=== PATIENT | male | born 1955 | race Caucasian/White ===

== ENCOUNTER 2018-09-01 06:10 | Day surgery (SDC) | payer BC ==
[2018-09-01] MEDS ORDERED: SOD CHLORIDE 0.9% 1,000 ML IV ×2 (06:30→08:50)
[2018-09-01 07:01] LABS: ADD MAN DIFF? NO
[2018-09-01 07:03] LABS: BASOPHIL # 0.1 10^3/ul (0.0-0.1); BASOPHILS % 0.9 % (0.0-2.0); EOSINOPHILS # 0.1 10^3/ul (0.0-0.5); EOSINOPHILS % 1.9 % (0.0-7.0); HEMOGLOBIN 15.1 g/dl (14.0-18.0); LYMPHOCYTES # 1.8 10^3/ul (0.8-2.9); LYMPHOCYTES % 32.7 % (15.0-51.0); MEAN CORPUSCULAR HEMOGLOBIN 30.3 pg (29.0-33.0); MEAN CORPUSCULAR HGB CONC 34.3 g/dl (32.0-37.0); MEAN CORPUSCULAR VOLUME 88.4 fl (82.0-101.0); MEAN PLATELET VOLUME 9.9 fl (7.4-10.4); MONOCYTE # 0.5 10^3/ul (0.3-0.9); MONOCYTES % 9.5 % (0.0-11.0); NEUTROPHILS % 54.6 % (39.0-77.0); PLATELET COUNT 146 10^3/UL (140-415); RED BLOOD COUNT 4.98 10^6/ul (4.70-6.10); RED CELL DISTRIBUTION WIDTH 12.6 % (11.5-14.5)
[2018-09-01 07:03] LABS: WHITE BLOOD COUNT 5.4 10^3/ul (4.8-10.8)
[2018-09-01 07:25] LABS: INR 0.92; PROTIME 12.5 Sec (11.9-14.9)
[2018-09-01 07:26] LABS: PARTIAL THROMBOPLASTIN TIME 25.2 Sec (23.0-35.0)
[2018-09-01 07:27] LABS: ALANINE AMINOTRANSFERASE 28 IU/L (13-69); ALBUMIN 4.4 g/dl (3.3-4.9); ALBUMIN/GLOBULIN RATIO 1.33; ALKALINE PHOSPHATASE 79 IU/L (42-121); ANION GAP 11 (5-13); ASPARTATE AMINO TRANSFERASE 28 IU/L (15-46); BILIRUBIN,INDIRECT 1.2 mg/dl (0-1.1); BILIRUBIN,TOTAL 1.2 mg/dl (0.2-1.3); CALCIUM 10.2 mg/dl (8.4-10.2); CARBON DIOXIDE 25 mmol/L (21-31); CHLORIDE 106 mmol/L (97-110); CHOL/HDL RATIO 2.9 RATIO; CHOLESTEROL 125 mg/dl (100-200); CREATININE 0.88 mg/dl (0.61-1.24); Estimated GFR > 60 mL/min (>60); GLUCOSE 141 mg/dl (70-220); HDL CHOLESTEROL 42 mg/dl (30-78); LDL CHOLESTEROL,CALCULATED 58 mg/dl; POTASSIUM 4.4 mmol/L (3.5-5.1); SODIUM 142 mmol/L (135-144); TOTAL PROTEIN 7.7 g/dl (6.1-8.1); TRIGLYCERIDES 125 mg/dl (0-149)
[2018-09-01] MEDS ORDERED: VERAPAMIL 5 MG INJ (07:28)
[2018-09-01] MEDS ORDERED: IODIXANOL LOCM 100 ML BTL (07:28)
[2018-09-01] MEDS ORDERED: NITROGLYCERIN (IC) 100 MCG/ML INJ (07:28)
[2018-09-01] MEDS ORDERED: HEPARIN 1000 UNITS/ML 10 ML INJ (07:28)
[2018-09-01] MEDS ORDERED: LIDOCAINE 1% (MDV) 20 ML INJ (07:28)
[2018-09-01] MEDS ORDERED: FENTAnyl 50 MCG/ML VIAL (07:28)
[2018-09-01] MEDS ORDERED: MIDAZOLAM 1 MG/ML 2 ML INJ (07:28)
[2018-09-01 07:49] LABS: BLOOD UREA NITROGEN 22 mg/dl (7-20)
[2018-09-01] MEDS ORDERED: ACETAMINOPHEN 325 MG TAB PO (09:00)
[2018-09-01] MEDS ORDERED: morphine 2 MG INJ IV (09:00)
== END 2018-09-01 15:00 | disposition home or self-care (01) ==
LOC: CCL 06:10 → SDS 06:10 → CCL 15:00
DX: I25.119 Atherosclerotic heart disease of native coronary artery with unspecified angina pectoris (principal); I10 Essential (primary) hypertension
CPT/HCPCS: 80053; 80061; 82962; 85025; 85610; 85730; 93459